=== PATIENT | male | born 1965 | race Caucasian/White ===

== ENCOUNTER 2020-08-09 11:29 | Day surgery (SDC) | payer OTHER ==
[2020-08-07 15:22] VITALS: BMI 25.0
--- NOTE | 2020-08-09 07:18 | HP ---
History & Physical Update - Physical Physical: No Change - Assessment Assessment: No Change - Plan Plan: No Change
[~2020-08-09 11:29] MED LIST: BUPIVACAINE HCL/PF 0.25% (2.5MG/ML) 10 ML VIAL IJ ONE
[2020-08-09] MEDS ORDERED: PROPOFOL 20 ML ONE ×3 (14:25)
[2020-08-09] MEDS ORDERED: MIDAZOLAM HCL 2 MG/2 ML SINGLE DOSE VIAL ONE (14:26)
[2020-08-09] MEDS ORDERED: SUCCINYLCHOLINE CHLORIDE 200 MG/10 ML SYRINGE ONE ×2 (14:26)
[2020-08-09] MEDS ORDERED: ceFAZolin SODIUM 1 GM VIAL ONE (14:39)
[2020-08-09] MEDS ORDERED: ePHEDrine SULFATE 50 MG/1 ML AMPULE ONE (15:06)
[2020-08-09] MEDS ORDERED: BUPIVACAINE HCL/PF 0.25% (2.5MG/ML) 10 ML VIAL IJ ONE (15:25)
[2020-08-09] MEDS ORDERED: PROMETHAZINE HCL 25 MG/1 ML VIAL IVPUSH PRN (15:41)
[2020-08-09] MEDS ORDERED: oxyCODONE HCL 5 MG TABLET PO PRN ×2 (15:41)
[2020-08-09] MEDS ORDERED: ONDANSETRON 4 MG/2 ML VIAL IVPUSH PRN (15:41)
--- NOTE | 2020-08-09 15:42 | OPR ---
DATE OF OPERATION: 08/10/2020 TITLE OF OPERATION: Right Medial partial meniscectomy, and synovectomy (limited). PREOPERATIVE DIAGNOSIS: Right Medial meniscus tear, synovitis. POSTOPERATIVE DIAGNOSIS: Right Medial meniscus tear,and synovitis SURGEON: Geremias Cisneros DO TEST EQUIPMENT MECHANIC: N/A ANESTHESIA: General anesthesia SPECIMEN: Meniscus shavings COMPLICATIONS: none EBL: minimal INDICATIONS FOR SURGERY: Mr. Gallegos is a 55 year old male who presented in the preoperative setting with a chief complaint of right knee pain. Based on their mechanical symptoms, pre-injury level of activity, and after failure of conservative management, including activity modification and physical therapy, surgical treatment was discussed. The risks and benefits of surgery and anesthesia were discussed in detail including but not limited to pain, bleeding, infection, scarring, damage to vessels and nerves, failure to obtain the desired result, failure to heal, failure to return to sport or work. Understanding the risks and benefits, Mr. Gallegos opted to proceed with surgical management. SURGEON'S NARRATIVE: After informed consent was obtained the patient was brought the operating room prepped draped in usual fashion sterile technique. Timeout was called. Site verification was performed and perioperative antibodies were administered. A standard anterolateral portal was made and the 4 mm 30 degree arthroscope was inserted into the knee joint without difficulty. 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 It also did demonstrate synovitic fronts over the inferior and medial portions of the patella.Turning my attention the medial compartment, the patient had a tear of the body and posterior horn of the medial meniscus that reached the articular surface. There was no associated chondromalacia of the medial femoral condyle or tibial plateau. I performed a partial medial meniscectomy removing the torn tissue with arthroscopic shaver and biter. I estimate that I removed approximately 25 percent of the meniscus. The remaining meniscus was intact after the resection from root to root. The ACL was examined and was intact. Turning my attention the lateral compartment the patient, the lateral meniscus was probed, and there was no tear of the lateral meniscus. There was also no significant associated chondromalacia of the lateral compartment. The meniscus was intact from root to root. I then went into the patellofemoral compartment to complete a limited synovectomy, and of the patellofemoral joint. This completed the procedure. I closed incisions with 3-0 nylon, and injected .25% marcaine into the portal sites. A sterile dressing and xeroform and an YESSICA bandage was placed. The patient tolerated procedure well and arrived recovery in stable condition. Patient will follow up with me in the office within 10-14 days for suture removal. He will start ASA 325 QD starting tomorrow for 30 days. He will be WBAT with crutches, and start Physical therapy within 7 days. Geremias Cisneros DO
[2020-08-09 17:44] VITALS: BP 128/84; PULSE 71; TEMP 97.9
--- NOTE | 2020-08-13 17:58 | PATH ---
Surgical Pathology Report Patient Name: JERRY HENAO [facility]. Rec. #: [id number] /Age/Gender: 1965 (Age: 55) / M Account: [id number] Location: [facility] Taken: 08/09/2020 Received: 08/09/2020 Reported: 08/13/2020 Physicians: Geremias Cisneros MD Specimen(s) Received SHAVINGS RIGHT KNEE Clinical History Right knee meniscus tear Final Diagnosis KNEE SHAVINGS, RIGHT, ARTHROSCOPY: FRAGMENTS OF CARTILAGE, DENSE FIBROCONNECTIVE TISSUE, ADIPOSE TISSUE, AND SYNOVIUM. Electronically Signed Christie Rubio M.D. Gross Description Received in formalin, labeled "right knee shavings," is a 5.0 x 5.0 x 0.3 cm. aggregate of mcclain-yellow soft tissue fragments. A corporate representative portion is submitted in one cassette. /08/12/2020 [facility]08/12/2020
== END 2020-08-09 17:48 | disposition home or self-care (01) ==
LOC: FASU 11:29
PROVIDERS: ATTEND Orthopaedic Surgery Sports Medicine
PROC: 0SBC4ZZ Excision of Right Knee Joint, Percutaneous Endoscopic Approach (ICD-10-PCS; principal; 2020-08-09 14:52)
DX: S83.241A Other tear of medial meniscus, current injury, right knee, initial encounter (principal); M22.41 Chondromalacia patellae, right knee; X58.XXXA Exposure to other specified factors, initial encounter; Y93.9 Activity, unspecified; Y92.9 Unspecified place or not applicable
CPT/HCPCS: 88304-TC; 94760